=== PATIENT | female | born 1960 | race Caucasian/White ===

== ENCOUNTER 2019-07-27 17:59 | Emergency (ER) | payer MEDICAID ==
[~2019-07-27] VITALS: Ht 157.5 cm; Wt 84.0 kg
[~2019-07-27 17:59] MED LIST: AMLO10TA80 PO; ASPI-1393 PO; HYDR-2510 PO; LISI40TA4 PO
[2019-07-27] MEDS ORDERED: IBUPROFEN 600MG TABLET PO ONE (20:15)
[2019-07-27 21:52] VITALS: BP 109/57
== END 2019-07-27 22:32 | disposition home or self-care (01) ==
LOC: ER 17:59
DX: M79.604 Pain in right leg (principal); I10 Essential (primary) hypertension; Z79.82 Long term (current) use of aspirin
CPT/HCPCS: 73502; 93971; 99284; Z7610